=== PATIENT | female | born 1985 | race Caucasian/White ===

== ENCOUNTER 2024-08-01 16:20 | Outpatient (CLI) | payer MEDICAID | END 2024-08-01 23:59 | disposition home or self-care (01) | LOC: RAD 16:20 | PROVIDERS: ATTEND Podiatrist Foot & Ankle Surgery | DX: M19.072 Primary osteoarthritis, left ankle and foot (principal); M19.071 Primary osteoarthritis, right ankle and foot; M25.471 Effusion, right ankle; M25.472 Effusion, left ankle | CPT/HCPCS: 73700 ==